=== PATIENT | male | born 1960 | race Caucasian/White ===

== ENCOUNTER 2017-12-30 16:44 | Emergency (ER) | payer MEDICARE, SELFPAY ==
--- NOTE | 2017-12-30 17:16 | ED.CPR ---
HPI - CPR General Chief Complaint: Unresponsive Time Seen by Provider: 12/30/17 17:08 Source: family and EMS Mode of arrival: EMS History of Present Illness HPI narrative: Patient presents to the emergency department today via EMS with CPR in progress. He was a witnessed arrest with initial rhythm PEA and immediate CPR initiated. [place]. Medics were on scene within 5 min. For rounds of ACLS drugs were given prior to their arrival. At no point was there any organized rhythm or return of spontaneous circulation. Patient was intubated on scene and IO placed in the right medina. Patient had been suffering with a cold recently, was supposed to be evaluated for a valve replacement and had recently flown back from [place]. complaint: collapsed during activity Onset (ago): minute(s) Place: other Bystander CPR performed: Yes AED applied by bystander/cemetery keeper: No Shock advised: No Downtime before ACLS arrival (mins): 5 Initial findings in the field: unresponsive ROSC in the field: No Associated injuries: No Known history of: CAD (Valve problems) Treatments prior to arrival: intubation, chest compressions and epinephrine mgs # Review of Systems Review of Systems Review of systems is unobtainable Exam Narrative Exam Narrative: 57 obese male, CPR in progress. Skin mottled Const General: acute distress Nutritional Appearance: overweight HENMT Head: normal to inspection Ears: hearing grossly normal bilaterally Teeth and gingiva: dentition normal Eyes Pupils: dilated and fixed Resp Other: apneic equal breath sounds through ETT Cardio Other: asystole GI Inspection: non-distended Palpation: soft and no hepatosplenomegaly Skin Other: mottled, cool Neuro General: other (unresponsive) MDM - Cardiac Arrest/CPR MDM Narrative Medical decision making narrative: Prior to our arrival 4 rounds of ACLS drugs were administered. On his arrival he continued to be PA and we continued to consider possible causes, working to are H in TS. Four more rounds of epi, bicarb, and tPA were administered. At no point during are Manny have an organized rhythm or palpable pulse. Time of 1700 Differential Diagnosis Likely acute massive pulmonary embolism, acute myocardial infarction, cardiac arrest and sudden cardiac Course Orders Ordered: Alteplase, Recombinant (Activase) 100 mg IV NOW [facility] Discharge Plan Departure Patient Disposition:
--- NOTE | 2017-12-30 17:23 | ED_ITS ---
HPI - CPR General Chief Complaint: Unresponsive Time Seen by Provider: 12/30/17 17:08 Source: family and EMS Mode of arrival: EMS History of Present Illness HPI narrative: Patient presents to the emergency department today via EMS with CPR in progress. He was a witnessed arrest with initial rhythm PEA and immediate CPR initiated. [place]. Medics were on scene within 5 min. For rounds of ACLS drugs were given prior to their arrival. At no point was there any organized rhythm or return of spontaneous circulation. Patient was intubated on scene and IO placed in the right medina. Patient had been suffering with a cold recently, was supposed to be evaluated for a valve replacement and had recently flown back from [place]. complaint: collapsed during activity Onset (ago): minute(s) Place: other Bystander CPR performed: Yes AED applied by bystander/child development specialist: No Shock advised: No Downtime before ACLS arrival (mins): 5 Initial findings in the field: unresponsive ROSC in the field: No Associated injuries: No Known history of: CAD (Valve problems) Treatments prior to arrival: intubation, chest compressions and epinephrine mgs # Review of Systems Review of Systems Review of systems is unobtainable Exam Narrative Exam Narrative: 57 obese male, CPR in progress. Skin mottled Const General: acute distress Nutritional Appearance: overweight HENMT Head: normal to inspection Ears: hearing grossly normal bilaterally Teeth and gingiva: dentition normal Eyes Pupils: dilated and fixed Resp Other: apneic equal breath sounds through ETT Cardio Other: asystole GI Inspection: non-distended Palpation: soft and no hepatosplenomegaly Skin Other: mottled, cool Neuro General: other (unresponsive) MDM - Cardiac Arrest/CPR MDM Narrative Medical decision making narrative: Prior to our arrival 4 rounds of ACLS drugs were administered. On his arrival he continued to be PA and we continued to consider possible causes, working to are H in TS. Four more rounds of epi, bicarb, and tPA were administered. At no point during are Manny have an organized rhythm or palpable pulse. Time of 1700 Differential Diagnosis Likely acute massive pulmonary embolism, acute myocardial infarction, cardiac arrest and sudden cardiac Course Orders Ordered: Alteplase, Recombinant (Activase) 100 mg IV NOW [facility] Discharge Plan Departure Patient Disposition:
--- NOTE | 2017-12-30 17:39 | PC.NURSE ---
Procurment Coordinator was called- Daysi. Case # [id number]. Pt is candidate for donation. Per Daysi, we will be receiving a call back shortly regarding contacting [facility].
[2017-12-30 17:56] VITALS: BMI 33.0
--- NOTE | 2017-12-30 18:02 | PC.NURSE ---
PLEASE SEE TRAUMA FLOW SHEET FOR MORE INFORMATION
--- NOTE | 2017-12-30 18:18 | PC.NURSE ---
[id number] was contacted. Message left on answering machine. Dr Ahn aware. Pt's family decided on [facility] in [place]. [phone] Ahn contacted them.
--- NOTE | 2017-12-30 18:45 | PC.NURSE ---
Yeimi, [employer] called back. Advised not a slab off mill tender's case. We were given the approval to contact [facility]. Dr Ahn on phone with [facility] at this time. Remaining family in room made aware
--- NOTE | 2017-12-30 19:04 | PC.NURSE ---
Per Dr Ahn, [facility] is on there way and should arrive in less than 2hr. Family made aware. I was advised by Daysi from the procurement center that the donation center may arrive later in the day. Since we have since found out the pt can be released to the home, I placed call to Daysi in order to update [facility] (donation center) that the pt is not a coroners case and will be released to before their arrival.
--- NOTE | 2017-12-30 19:52 | PC.NURSE ---
Removed from backboard. Body cleaned and placed in clean gown. ETT removed. Face washed. has wedding band from Left hand.
--- NOTE | 2017-12-30 20:30 | PC.NURSE ---
Tami from [facility] here to transport pt. Assisted with transfer. Tami informed family of further information
== END 2017-12-30 20:35 | disposition expired ==
LOC: ED 18:49
PROVIDERS: Emergency Provider Emergency Medicine
DX: I46.9 Cardiac arrest, cause unspecified (principal)
CPT/HCPCS: 92950; 94770; 96374; 99282; 99285; 99291; 99292; J0171